=== PATIENT | female | born 2000 | race Two or more races ===

== ENCOUNTER 2024-09-01 11:04 | Emergency (ER) | payer BC ==
[~2024-09-01] VITALS: Ht 167.6 cm; Wt 79.4 kg
[2024-09-01 11:17] VITALS: BP 107/74; O2SAT 98
[2024-09-01] MEDS ORDERED: CONTRAVE ER 8-1 EACH (11:18)
[2024-09-01] MEDS ORDERED: BUPROPION XL450 MG (11:18)
[2024-09-01] MEDS ORDERED: NORFLEX100MG PO (12:29)
[2024-09-01] MEDS ORDERED: DICLOFENAC SODI75 MG PO (12:29)
[2024-09-01] MEDS ORDERED: DEXAMETHASONE SODIUM PHOSPHATE 4 MG/ML VIAL IM ONE (12:30)
[2024-09-01] MEDS ORDERED: ORPHENADRINE CITRATE 30 MG/ML AMPUL IM ONE (12:30)
[2024-09-01] MEDS ORDERED: KETOROLAC TROMETHAMINE 60 MG VIAL IM ONE ×2 (12:30→12:54)
[2024-09-01] MEDS ORDERED: ORPHENADRINE CITRATE 30 MG/ML AMPUL ONE (12:54)
[2024-09-01] MEDS ORDERED: DEXAMETHASONE SODIUM PHOSPHATE 4 MG/ML VIAL ONE (12:55)
== END 2024-09-01 13:41 | disposition home or self-care (01) ==
LOC: ER 11:05
DX: M94.0 Chondrocostal junction syndrome [Tietze] (principal)